=== PATIENT | female | born 1965 | race Two or more races ===

== ENCOUNTER 2019-01-02 00:18 | Inpatient (IN) | payer SELFPAY ==
[~2019-01-02] VITALS: Ht 157.5 cm; Wt 85.7 kg
[2019-01-02] VITALS (15 sets, daily range): BP systolic 108–151; BP diastolic 58–79
[2019-01-02] MEDS ORDERED: SODIUM CHLORIDE 0.9% 500 ML IV ONE (01:01)
[2019-01-02 01:03] LABS: Basophils # (auto) 0.1 uL; Eosinophils # (auto) 0 uL; Monocytes # (auto) 0.2 uL; White Blood Cell 3.7 10^3/uL (4.4-10.8)
[2019-01-02 01:04] LABS: Basophils % (auto) 1.5 % (0.0-2.0); Eosinophils % (auto) 0.5 % (0.0-7.0); Hematocrit 9.8 % (36.0-46.0); Lymphocytes # (auto) 0.9 uL; Lymphocytes % (auto) 23.3 % (10.0-50.0); Mean Corpuscular Hgb Conc. 27.1 g/dL (32.0-36.0); Mean Corpuscular Volume 66.2 fL (80.0-100.0); Monocytes % (auto) 4.3 % (0.0-12.0); Neutrophils # (auto) 2.6 uL; Neutrophils % (auto) 70.4 % (37.0-80.0); Nucleated Red Blood Cells % 0.2 %; Platelet Count (auto) 259 10^3/uL (140-450); Red Blood Cells 1.48 10^6/uL (4.0-5.20)
[2019-01-02 01:12] LABS: Hemoglobin 2.7 g/dL (12.2-16.2); Red Cell Distribution Width 20.6 % (11.8-14.3)
[2019-01-02] MEDS ORDERED: diphenhdrAMINE HCL 50 MG/1 ML VL IV ONE ×2 (01:15→01:30)
[2019-01-02] MEDS ORDERED: ACETAMINOPHEN 500 MG TAB PO ONE ×2 (01:15→01:30)
[2019-01-02] MEDS ORDERED: MORPHINE SULF INJ 2 MG/ML SYRINGE 1ML IV ONE (01:15)
[2019-01-02 01:21] LABS: INR 1.03 (0.9-1.15)
[2019-01-02 01:23] LABS: Albumin 3.3 g/dL (3.4-5.0); BUN/Creatinine Ratio 11.3; Calcium 7.9 mg/dL (8.5-10.1); Potassium 3.9 mmol/L (3.5-5.1)
[2019-01-02 01:26] LABS: Bilirubin, Total 0.3 mg/dL (0.2-1.0); Total Protein 6.9 g/dL (6.4-8.2)
[2019-01-02] MEDS ORDERED: IOHEXOL 300 MG/ML 100ML BOTTLE IJ ONE (01:45)
[2019-01-02 02:21] LABS: Amylase 20 U/L (25-115); Lipase 93 U/L (73-393)
[2019-01-02 03:22] LABS: Urine Bacteria FEW /hpf (None Seen); Urine Blood 2+ /uL (Negative); Urine Specific Gravity 1.003 (1.001-1.035); Urine WBC 1 /hpf (0 - 5)
[2019-01-02] MEDS ORDERED: CALCIUM CARB 500 MG CHEW TAB PO ONE (04:15)
[2019-01-02] MEDS ORDERED: FUROSEMIDE 40 MG TAB PO ONE (04:30)
[2019-01-02] MEDS ORDERED: TEMAZEPAM 15 MG CAP PO PRN (04:45)
[2019-01-02] MEDS ORDERED: HYDROcodone-ACET 5/325MG TAB PO PRN (04:45)
[2019-01-02] MEDS ORDERED: ONDANSETRON HCL 4 MG/2 ML VIAL IV PRN (04:45)
[2019-01-02] MEDS ORDERED: ACETAMINOPHEN 325 MG TAB PO PRN (04:45)
[2019-01-02] MEDS: SODIUM CHLORIDE 0.9% 1,000 ML IV SCH ×2 (06:00→18:08)
--- NOTE | 2019-01-02 06:05 | NUR ---
arrival note pt awake, alert, a/ox4, afebrile. no sob or distress, 2l nc o2sat 100%. no c/o pain at this time. abd distended w/ tenderness upon palpation. pt states no current vag bleeding. deleon catheter draining via gravity w/ yellow urine. prbc currently infusing, pt tolerating well. pt educated on pain mgmt and environment, pt states understanding. bed at lowest position. call light w/in reach. safety precautions in place. will continue to monitor.
--- NOTE | 2019-01-02 07:30 | NUR ---
RECEIVED REPORT FROM NIGHT NURSE. PATIENT RESTING IN BED, BLOOD INFUSING, NO COMPLAINTS OR PAIN OR DISCOMFORT. WILL CONTINUE TO MONITOR.
--- NOTE | 2019-01-02 08:00 | NUR ---
CRITICAL LAB VALUE HGB 5.0
--- NOTE | 2019-01-02 08:10 | NUR ---
BLOOD INFUSED. SEE INFUSION WORKSHEET.
[2019-01-02 08:11] LABS: INR 1.04 (0.9-1.15); Partial Thromboplastin Time 24.1 sec (23.64-32.05)
--- NOTE | 2019-01-02 09:02 | NUR ---
DR. BRADSHAW AT BEDSIDE. ORDERS RECEIVED, WILL PLACE AND CARRY OUT.
--- NOTE | 2019-01-02 10:54 | NUR ---
BLOOD STARTED 3RD UNIT. SEE TRANSFUSION WORKSHEET.
[2019-01-02] MEDS: FAMOTIDINE 20 MG TAB PO SCH ×2 (11:55→22:24)
[2019-01-02 15:51] LABS: Hematocrit 19.8 % (36.0-46.0)
[2019-01-02 15:57] LABS: Hemoglobin 6.4 g/dL (12.2-16.2)
--- NOTE | 2019-01-02 16:25 | NUR ---
SPOKE WITH DR. MENA, ORDERS FOR 1 UNIT PRBC OBTAINED, WILL PLACE AND CARRY OUT.
--- NOTE | 2019-01-02 16:25 | NUR ---
CRITICAL LAB HGB 6.4
--- NOTE | 2019-01-02 17:57 | NUR ---
BLOOD UNIT 4 STARTED. SEE TRANSFUSION WORKSHEET.
--- NOTE | 2019-01-02 19:30 | NUR ---
Opening Shift Note Assumed care of patient, awake and alert. No S/S of distress/SOB or pain. Patient receiving blood transfusion, verbalized understanding to call for any possible blood transfusion reaction. Instructed on POC and to call for assist PRN, will continue to monitor for changes Q1hr and PRN.
--- NOTE | 2019-01-02 20:30 | NUR ---
Completed transfusing fourth unit of blood. No blood transfusion reaction noted. Will continue to monitor patient.
[2019-01-03 01:36] LABS: Hematocrit 24.5 % (36.0-46.0); Hemoglobin 7.7 g/dL (12.2-16.2)
[2019-01-03 05:10] VITALS: BP 126/65
[2019-01-03 05:40] LABS: Hematocrit 21.7 % (36.0-46.0); Mean Corpuscular Hemoglobin 25.3 pg (28.0-32.0)
[2019-01-03 05:44] LABS: Basophils # (auto) 0.1 uL; Basophils % (auto) 1.3 % (0.0-2.0); Eosinophils # (auto) 0.1 uL; Eosinophils % (auto) 1.2 % (0.0-7.0); Lymphocytes # (auto) 1.2 uL; Mean Corpuscular Hgb Conc. 31.9 g/dL (32.0-36.0); Mean Corpuscular Volume 79.4 fL (80.0-100.0); Monocytes # (auto) 0.2 uL; Monocytes % (auto) 4.3 % (0.0-12.0); Neutrophils # (auto) 3.5 uL; Neutrophils % (auto) 70.2 % (37.0-80.0); Nucleated Red Blood Cells % 0.2 %; Platelet Count (auto) 220 10^3/uL (140-450); Red Blood Cells 2.74 10^6/uL (4.0-5.20)
[2019-01-03 05:58] LABS: Potassium 4.2 mmol/L (3.5-5.1)
[2019-01-03 06:00] LABS: Hemoglobin 6.9 g/dL (12.2-16.2)
--- NOTE | 2019-01-03 06:02 | NUR ---
microbiology technologist Keila Montano called regarding critical hemoglobin of 6.9. Hospitalist Yinka Fletcher NP paged. Awaiting for call back.
[2019-01-03 06:05] LABS: Albumin 3.2 g/dL (3.4-5.0); BUN/Creatinine Ratio 11.1; Bilirubin, Total 0.7 mg/dL (0.2-1.0); Calcium 8.1 mg/dL (8.5-10.1); Total Protein 6.4 g/dL (6.4-8.2)
--- NOTE | 2019-01-03 06:30 | NUR ---
Hospitalist Yinka Fletcher NP, called back, updated with patient's status, order received to transfuse one unit of PRBC. Will give report to oncoming RN.
--- NOTE | 2019-01-03 07:20 | NUR ---
RECEIVED REPORT FROM NIGHT NURSE. PATIENT RESTING IN BED, NO DISTRESS NOTED, WILL CONTINUE TO MONITOR.
[2019-01-03 08:03] VITALS: BP 130/66
[2019-01-03 08:58] VITALS: BP 130/63
--- NOTE | 2019-01-03 09:06 | NUR ---
BLOOD INFUSING. SEE TRANSFUSION WORKSHEET.
[2019-01-03] MEDS: SODIUM CHLORIDE 0.9% 1,000 ML IV SCH (09:07)
[2019-01-03 09:14] VITALS: BP 113/57
--- NOTE | 2019-01-03 09:20 | NUR ---
DR. BRADSHAW AT BEDSIDE.
[2019-01-03] MEDS: FAMOTIDINE 20 MG TAB PO SCH (09:45)
--- NOTE | 2019-01-03 11:20 | NUR ---
BLOOD INFUSION COMPLETE. SEE TRANSFUSION WORKSHEET.
[2019-01-03 12:01] VITALS: BP 136/73
[2019-01-03 12:27] VITALS: BP 136/73
--- NOTE | 2019-01-03 13:28 | NUR ---
PATIENT COMPLAINING THAT CATHETER IS HURTING AND SHE WANTS IT TAKEN OUT. PATIENT HAS NO HISTORY OF TROUBLE WITH URINATION. JONES CATHETER REMOVED PER PATIENT'S REQUEST. WILL NOTIFY DOCTOR.
[2019-01-03 14:00] LABS: Hemoglobin 8.1 g/dL (12.2-16.2)
[2019-01-03 14:02] LABS: Hematocrit 25.2 % (36.0-46.0)
--- NOTE | 2019-01-03 16:39 | NUR ---
Discharge instructions given as ordered. Encourage to follow up with PMD as instructed. All questions and concerns addressed. Patient verbalized understanding. Medication reconciliation form completed and copy given to patient. IV removed with catheter intact, pressure dressing applied, deleon catheter removed. Patient taken to vehicle via wheelchair with all personal belongings, accompanied by staff and family member. No distress noted at time of departure.
[2019-01-04 09:35] LABS: Leuteinizing Hormone 7.8 IU/L
[2019-01-04 09:36] LABS: Follicle Stimulating Hormone 21.14 IU/L (SEE BELOW)
== END 2019-01-03 17:20 | disposition home or self-care (01) | DRG 699 ==
LOC: EDBD 00:18 → ER 00:21 → OVERFLOW 04:35 → WEST WING 07:06
PROVIDERS: ADMIT Nurse Practitioner; ATTEND Nurse Practitioner
PROC: 30233N1 Transfusion of Nonautologous Red Blood Cells into Peripheral Vein, Percutaneous Approach (ICD-10-PCS; principal; 2019-01-02)
DX: N28.89 Other specified disorders of kidney and ureter (principal); K86.1 Other chronic pancreatitis; N93.8 Other specified abnormal uterine and vaginal bleeding; D64.9 Anemia, unspecified; D25.9 Leiomyoma of uterus, unspecified; R73.9 Hyperglycemia, unspecified; Z83.3 Family history of diabetes mellitus; Z88.0 Allergy status to penicillin
CPT/HCPCS: 36415; 36430; 51702; 71045; 74177; 76856; 80053; 81001; 82150; 82670; 83001; 83002; 83690; 83880; 84403; 84443; 84484; 84702; 85014; 85018; 85025; 85610; 85730; 86850; 86900; 86901; 86920; 94761; 96374; G0378